=== PATIENT | female | born 1975 | race Caucasian/White ===

== ENCOUNTER 2018-08-07 17:54 | Emergency (ER) | payer OTHER, SELFPAY ==
[2018-08-07 18:12] VITALS: BP 122/74; PULSE 66; RESP 18; TEMP 36.2; O2SAT 100; BMI 26.4
[2018-08-07] MEDS: ONDANSETRON 4 MG/2 ML INJ IV (18:36)
[2018-08-07] MEDS: SODIUM CHLORIDE 0.9% 1,000 ML 1000 ML IV ×2 (18:36→20:45)
[2018-08-07 18:56] LABS: Add Manual Diff / Slide Review NO; Basophils Percent Auto 0.5 % (0-2); Eosinophils Percent Auto 2.8 % (2-4); Hematocrit 39.2 % (36-46); Hemoglobin 13.7 g/dL (12.0-16.0); Lymphocytes Percent Auto 22.6 % (25-40); Mean Corpuscular HGB Conc 34.9 % (30-36); Mean Corpuscular Volume 97.3 fL (80-100); Monocytes Percent Auto 9.4 % (3-14); Neutrophils Absolute Auto 3900 /uL (3000-5900); Neutrophils Percent Auto 64.7 % (50-75); Platelet Count 180 X10^3/uL (150-400); Red Blood Cell Count 4.03 X10^6/uL (4.0-5.2); Red Cell Distribution Width 11.9 % (11.6-14.8); White Blood Cell Count 6.1 X10^3/uL (4.5-11.0)
[2018-08-07] MEDS: MECLIZINE HCL 12.5 MG TABLET 25 MG PO (19:03)
[2018-08-07 19:13] LABS: BUN Creatinine Ratio 22.2 (6-22); Blood Urea Nitrogen 20 mg/dL (7-17); Calcium 9.4 mg/dL (8.4-10.2); Carbon Dioxide 28 mmol/L (22-32); Chloride 104 mmol/L (98-107); Estimated Glomerular Filt Rate > 60.0 mL/min (>60); Glucose 87 mg/dL (70-100); HEMOLYSIS < 15 (0-50); Potassium 3.7 mmol/L (3.4-5.1); Sodium 143 mmol/L (137-145)
[2018-08-07 19:15] VITALS: BP 120/69; PULSE 58; RESP 19; O2SAT 100
[2018-08-07 20:12] VITALS: BP 115/62; PULSE 67; RESP 16; O2SAT 100
[2018-08-07 20:52] VITALS: BP 120/61; PULSE 64; RESP 14; O2SAT 100
[2018-08-07 21:35] VITALS: BP 112/64; PULSE 63; RESP 17; O2SAT 98
[2018-08-07 21:50] VITALS: BP 112/64; RESP 10
[2018-08-07] MEDS: ONDANSETRON 4 MG ODT PREPACK 1 BOTTLE MISC (22:01)
--- NOTE | 2018-08-08 05:24 | ED_ITS ---
HPI - Dizziness General Chief Complaint: Dizziness Stated Complaint: VERTIGO Time Seen by Provider: 08/07/18 18:10 Source: patient and family Mode of arrival: ambulatory Limitations: no limitations History of Present Illness HPI Narrative: 42-year-old female with history of hypothyroid presents to the emergency department with her mother and a chief complaint of severe gradually worsening dizziness over the course of the day. She has had a runny nose and trouble with eustachian tube dysfunction the past and has had upper respiratory type complaints for the past few days. She developed profound dizziness any time moving her head associated with nausea but no vomiting. She denies any recent head injuries and has no fever or chills. She denies chest pain or shortness of breath. She becomes significantly dizzy anytime she moves her head and states the dizziness lasts about 1 min. MD complaint: dizziness Onset (ago): hour(s) Timing: gradual onset Description: sense of movement and room spinning History of similar episodes: No History of trauma: No Severity: severe Relieving factors: remaining still Exacerbating factors: movement and position Associated symptoms: nausea Related Data Home Medications Medication Instructions Recorded Confirmed levothyroxine 250 #0 10/14/17 Previous Rx's Medication Instructions Recorded meclizine 25 mg PO BID-TID PRN #14 tab 08/07/18 ondansetron [Zofran ODT] 4 mg PO Q6H PRN #14 tab 08/07/18 Review of Systems Review of Systems All systems reviewed & are unremarkable except as noted in HPI and below Constitutional Denies chills, Denies fever(s), Denies lethargy and Denies weakness Eyes Denies change in vision, Denies eye discharge, Denies irritation and Denies loss of vision ENT Ears, Nose, Mouth, and Throat: Denies change in voice, Reports vertigo, Reports dizziness, Denies neck pain and Denies sore throat Cardiovascular Denies chest pain, Denies irregular heart rhythm, Denies lightheadedness, Denies palpitations, Denies dyspnea, Denies dyspnea on exertion and Denies orthopnea Respiratory Denies cough, Denies dyspnea, Denies dyspnea on exertion and Denies wheezing Gastrointestinal Gastrointestinal: Denies abdominal pain, Denies change in bowel habits, Denies diarrhea, Denies nausea and Denies vomiting Genitourinary Denies hematuria, Denies flank pain, Denies urinary incontinence and Denies urinary urgency Musculoskeletal Denies neck pain Integumentary/Breasts Denies pruritus, Denies erythema, Denies rash and Denies wounds Neurologic Denies confusion, Reports vertigo, Reports dizziness, Denies loss of vision and Denies weakness Psychiatric Denies anxiety, Denies confusion, Denies depression, Denies homicidal ideation and Denies suicidal ideation Endocrine Denies palpitations Hematologic/Lymphatic Denies easy bruising Allergic/Immunologic Denies wheezing [facility] Social History Smoking Status: Former smoker Exam Narrative Exam Narrative: GENERAL: This is a well-nourished, well-developed patient, in mild distress. Obviously uncomfortable and anxious HEAD: Atraumatic. Normocephalic. No temporal or scalp tenderness. EYES: Pupils equal round and reactive. Extraocular motions intact. No scleral icterus. No injection or drainage. ENT: Nose without bleeding, purulent drainage or septal hematoma. Throat without erythema, tonsillar hypertrophy or exudate. Uvula midline. Airway patent. NECK: Trachea midline. No JVD or lymphadenopathy. Supple, nontender, no meningeal signs. CARDIOVASCULAR: Regular rate and rhythm without murmurs, gallops, or rubs. RESPIRATORY: Clear to auscultation. Breath sounds equal bilaterally. No wheezes , rales, or rhonchi. GASTROINTESTINAL: Abdomen soft, non-tender, nondistended. No hepato-splenomegaly , or palpable masses. No guarding. EXTREMITIES: No clubbing, cyanosis, or edema. No joint tenderness, effusion, or edema noted. BACK: Nontender without deformity or crepitance. No flank tenderness. NEURO: AOx3. SKIN: No rash or erythema. Initial Vital Signs Initial Vital Signs: Vital Signs Temperature 97.2 F L 08/07/18 18:12 Pulse Rate 66 08/07/18 18:12 Respiratory Rate 18 08/07/18 18:12 Blood Pressure 122/74 08/07/18 18:12 Pulse Oximetry 100 08/07/18 18:12 Course Orders Ordered: Discontinued Medications Sodium Chloride (Normal Saline 0.9%) 1,000 mls @ 1,000 mls/hr IV BOLUS ONE Stop: 08/07/18 19:17 Last Infusion: 08/07/18 19:38 Dose: 0 mls/hr Admin: 08/07/18 18:36 Dose: 1,000 mls/hr Sodium Chloride (Normal Saline 0.9%) 1,000 mls @ 1,000 mls/hr IV BOLUS ONE Stop: 08/07/18 21:28 Last Infusion: 08/07/18 22:07 Dose: 1,000 mls/hr Admin: 08/07/18 20:45 Dose: 1,000 mls/hr Meclizine HCl (Antivert) 25 mg PO NOW ONE Stop: 08/07/18 18:48 Last Admin: 08/07/18 19:03 Dose: 25 mg Ondansetron HCl (Zofran) 4 mg IV NOW ONE Stop: 08/07/18 18:18 Last Admin: 08/07/18 18:36 Dose: 4 mg Ondansetron HCl (Zofran Odt Prepack) 1 bottle MISC SEEINSTR ONE Stop: 08/07/18 21:51 Last Admin: 08/07/18 22:01 Dose: 1 bottle Reevaluation(s) Reevaluation #1: [place]-Hallpike performed and notes fast twitch nystagmus towards the right ear Allyson maneuver results in complete resolution of vertigo, however patient still feels a bit groggy and ?floaty? after above stated medications Vital Signs - 8 hr 08/07/18 21:35 08/07/18 21:50 Pulse Rate 63 Respiratory Rate 17 10 L Blood Pressure [Left Arm] 112/64 112/64 Pulse Oximetry 98 MDM - Dizziness Differential Diagnosis Likely adverse reaction to drug, benign paroxysmal positional vertigo, orthostatic hypotension, vertebral basilar insufficiency, cerebrovascular accident, acute vestibular neuronitis and transient cerebral ischemia Medical Records Attestation: I reviewed the patient's medical records. Lab Data Attestation: I reviewed the patient's lab results. Result diagrams: 08/07/18 18:30 08/07/18 18:34 Lab Results 08/07/18 08/07/18 Range/Units 18:30 18:34 WBC 6.1 (4.5-11.0) X10^3/uL RBC 4.03 (4.0-5.2) X10^6/uL Hgb 13.7 (12.0-16.0) g/dL Hct 39.2 (36-46) % MCV 97.3 (80-100) fL MCH 34.0 (26-34) PG MCHC 34.9 (30-36) % RDW 11.9 (11.6-14.8) % Plt Count 180 (150-400) X10^3/uL Neut % (Auto) 64.7 (50-75) % Lymph % (Auto) 22.6 L (25-40) % Ritchie % (Auto) 9.4 (3-14) % Eos % (Auto) 2.8 (2-4) % Baso % (Auto) 0.5 (0-2) % Neut # (Auto) 3900 (2281-5115) /uL Sodium 143 (137-145) mmol/L Potassium 3.7 (3.4-5.1) mmol/L Chloride 104 (98-107) mmol/L Carbon Dioxide 28 (22-32) mmol/L BUN 20 H (7-17) mg/dL Creatinine 0.90 (0.52-1.04) mg/dL Estimated GFR > 60.0 (>60) mL/min BUN/Creatinine Ratio 22.2 H (6-22) Glucose 87 (70-100) mg/dL Calcium 9.4 (8.4-10.2) mg/dL MDM Narrative Medical decision making narrative: Differential diagnosis includes stroke, cardiac, dehydration, labyrinthitis, BPPV. BPPV thought most likely given reproducible, fatigable, peripheral vertigo which responds to meclizine and Allyson maneuver Discharge Plan Departure Patient Disposition: Home Clinical Impression: Benign paroxysmal positional vertigo Discharge Date/Time: 08/07/18 22:10 Interventions: ED Discharge Assessment Last Done: 08/07/18 22:08 Instructions: DI for Benign Paroxysmal Positional Vertigo Activity Restrictions/Additional Instructions: *You have been diagnosed with [ peripheral vertigo ] *What to do: *Take medications as directed *Follow up with your primary care provider in 2-3 days, call for an appointment. Let them know you were seen in the Emergency Department and that we ask that you be seen in follow up *Return to ER if you should have any new, worsening or concerning symptoms Prescriptions: New ondansetron [Zofran ODT] 4 mg tablet,disintegrating 4 mg PO Q6H PRN (Reason: nausea and vomiting) Qty: 14 RF: 0 meclizine 25 mg tablet 25 mg PO BID-TID PRN (Reason: dizziness) Qty: 14 RF: 0 No Action levothyroxine 200 MCG recon soln 250 Qty: 0 RF: 0 Referrals: Richard Lucio DO [Non-Staff] -
== END 2018-08-07 22:10 | disposition home or self-care (01) ==
PROVIDERS: Emergency Provider Emergency Medicine
DX: H81.10 Benign paroxysmal vertigo, unspecified ear (principal)
CPT/HCPCS: 36591; 80048; 85025; 93005; 96361; 96374; 99283; 99284; J2405

== ENCOUNTER 2019-06-26 13:00 | Outpatient (RCR) | payer OTHER, SELFPAY ==
--- NOTE | 2019-05-25 17:36 | PT.OIE ---
Current Diagnoses Stress incontinence (female) (male) (05/20/19) Pelvic muscle wasting (05/20/19) Provider Visit Care Team Role Provider Type Kevin Chan CNP Attending Provider Non-Staff Primary Care Provider Specialty: Medical Address: [address] [place] [address], [facility] Email: Physical Therapy Initial Evaluation PT-OP-A Visit Information Start: 05/25/19 16:58 Freq: Status: Active Protocol: Document 05/20/19 09:00 [facility] (Rec: 05/25/19 17:35 [facility] [email or web address]) Out-Patient Physical Therapy Visit Information Visit Information Visit Type Initial Evaluation Visit Note 43 year old femalereferred to PT for urinary incontinence wtih exercise. Stephanie has c/o urinary leakage with running and sprinting as well as with lifting weights. She reports she is okay in a squat position but if she comes out of a posterior pelvic tilt position she will experience leakage. Visit Start Time 09:00 Visit Stop Time 09:45 Total Visit Minutes 45 Visit Number 1 Evaluation Information Evaluation Date 05/20/19 PT-OP-B Current Condition Start: 05/25/19 16:58 Freq: Status: Active Protocol: Document 05/20/19 09:00 [facility] (Rec: 05/25/19 17:35 [facility] [email or web address]) Current Condition History of Current Condition Onset Date sx began post Current Complaints c/o urinary leakage with running and with lifting weights History of Current Condition Stephanie is a 43 year old female s/p 4 vaginal deliveries with minimal tearing. She reports her symptoms began following her pregnancies. 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 If she is in a posterior pelvic tilt she has more control. Running especially sprinting causes leakage and she will wet through her outerwear. She has a history of right biceps tendon repair 3 years ago and she notes during this time she injured her low back. Her urinary leakage symptoms worsened following this period. Treatment Goals Patient/Caregiver Goals Goals include to continue running and sprinting without urinary leakage and to feel strong and supported with lifting weights without leakage. PT-OP-F Manual Assessment Start: 05/25/19 16:58 Freq: Status: Active Protocol: Document 05/20/19 09:00 [facility] (Rec: 05/25/19 17:35 [facility] [email or web address]) Manual Assessments Soft Tissue Assessment Soft Tissue Mobility Assessment tightness of the iliopsoas bilaterally right greater than left with + panchito test Joint Mobility Assessment Joint Mobility Assessment SI instability with + ASLR on the R for left sided instability + flare test on the right with decreased ability to perform tight hip ER without the pelvis moving PT-OP-I Pelvic Floor Start: 05/25/19 16:58 Freq: Status: Active Protocol: Document 05/20/19 09:00 [facility] (Rec: 05/25/19 17:35 [facility] [email or web address]) Pelvic Floor Assessment Urine Pelvic Floor Surgery No Urinary Symptoms Urge Sensation Other Urinary Symptoms with impact exercise Stephanie reports moderate urgency and occasional urgency after going to the bathroom. Leakage Size Medium Leakage Cause Exercise Lifting Leaks Per Day depends on activity Urine Pad Type Maxi Pad Pelvic Clock Pelvic Clock 12-3 Atrophy Pelvic Clock 3-6 Atrophy Pelvic Clock 6-9 Atrophy Pelvic Clock 9-12 Atrophy SEMG (uV) Baseline 6.0 10 Second Contraction 13.4 Recruitment Pattern Fair Relaxation Fair Holding Fair Stability of Hold Fair SEMG Stability of Rest Fair Contraction Ability Voluntary Contraction Weak Voluntary Relaxation Weak Manual Muscle Testing Left 2 Manual Muscle Testing Right 3 Manual Muscle Testing Anterior 2 Manual Muscle Testing Posterior 3 Muscle Endurance (Seconds) 6 PT-OP-J Posture/Palpation/Skin Start: 05/25/19 16:58 Freq: Status: Active Protocol: Document 05/20/19 09:00 [facility] (Rec: 05/25/19 17:35 [facility] [email or web address]) Palpation Assessment Location One Palpation Location right quadratus lumborum Palpation Findings Soft Tissue Tightness Muscle Guarding Palpation Details visual tightness of the right quadratus lumborum in standing PT-OP-Q Treatments Start: 05/25/19 16:58 Freq: Status: Active Protocol: Document 05/20/19 09:00 [facility] (Rec: 05/25/19 17:35 [facility] [email or web address]) Therapeutic Exercises Supine Exercises 3 Supine Exercise Name supine bent knee fallouts Reps/Minutes x 10 reps 2 Supine Exercise Name pelvic floor long holds holding 10 seconds resting 10 seconds Reps/Minutes 2-3 xms per day Comments lateral wall recruitment visualization 1 Supine Exercise Name iliopsoas stretch in supine Side bilateral Comments emphasis on the right side Prone Exercises 1 Prone Exercise Name prone hip ER AROM Side right Reps/Minutes x 10 reps PT-OP-T Assessment and Plan Start: 05/25/19 16:58 Freq: Status: Active Protocol: Document 05/20/19 09:00 [facility] (Rec: 05/25/19 17:35 [facility] [email or web address]) Physical Therapy Assessment Rehab Potential Rehabilitation Potential Excellent Evaluation Complexity Number of Personal Factors/Comorbidities 0 Number of Body Systems Impaired 1-2 Clinical Presentation at Evaluation Stable Impairments Impairments Activity Tolerance Functional Activities ROM Soft Tissue Mobility Strength Other Impairments urinary stress incontinence with weakness of the pelvic floor Goals Five Impairment Decreased endurance of the pelvic floor Short Term Goal (STG) Stephanie is able to sustain a pelvic floor contraction in supine x 10 seconds for 10 reps STG Duration 4 weeks [employer] Goal (LTG) Stephanie is able to sustain a pelvic floor muscle contraction in standing x 10 seconds for 10 reps LTG Duration 8 weeks Four Impairment R SI dysfunction with decreased ability to rotate the right hip Skilled Nursing Goal (LTG) Stephanie is able to rotate her right hip without the pelvis moving, ASLR is negative B and she is no longer showing left SI unlocking demonstrating improved SI stabilization LTG Duration 8 weeks plus Three Impairment tightness and muscle guarding of the R>L iliopsoas, R quadratus lumborum Short Term Goal (STG) Stephanie is educated in a streching program for the iliopsoas and quadratus lumborum STG Duration 3-4 weeks Two Impairment Urinary leakage with weight lifting and running Skilled Nursing Goal (LTG) With strengthening Stephanie is able to return to her weight lifting exercises and running without experiencing leakage LTG Duration 8 weeks plus One Impairment Weakness of the levator ani with decreased sensation of PFM activation [employer] Goal (LTG) Stephanie is able to show a increase in pelvic floor strength by at least one muscle grade and has improved sensation of pelvic floor activation Current MMT is anterior 2/5 posterior 3/5 left side 2/5, right side 3/5 LTG Duration 8 weeks Assessment Summary Assessment Stephanie presents to physical therapy today with symptoms of urinary stress incontinence. She began noticing incontinence after her pregnancies. She has had 4 vaginal deliveries with small amounts of tearning only. 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 She describes leakage with running and especially with sprinting . With examination today she is tight in her R>L iliopsoas and has a + testing for ASLR test on the right with left side instability. She is guarded in her muscle tissue in the quadratus lumborum region and has difficulty with isolating hip ER on the right without her full pelvis moving. With internal pelvic floor examination the left side is weaker than the right. Her MMT is as follows: Anterior 2/5, left side wall 2 /5, right side wall 3/5, posterior wall 3/5. She has decreased endurance and it is difficult for her to feel her lateral levator ani musculature. Treatment today included neuromuscular awareness of the levator ani with EMG biofeedback. Stephanie tolerated this well. She demonstrates decreased endurance of the levator ani. Stephanie may benefit form NMES for the pelvic floor as it is difficult for her to feel her lateral mendoza. We will start this next visit for her. Physical Therapy Plan Frequency and Duration Frequency of Treatment 1x/Week Duration of Treatment 8 weeks Plan of Care Start Date 05/20/19 Plan of Care End Date 07/22/19 Therapeutic Interventions Therapeutic Interventions Home Exercise Program Joint Mobilizations Manual Therapy Neuromuscular Re-education Patient/Caregiver Education Self-Care/Home Management Therapeutic Exercises Modalities Biofeedback Electric Stimulation Other Therapeutic Interventions Home rental of NMES Next Visit Focus/Plan Next Note Type Treatment Note Next Visit Plan Begin NMES next visit for improved sensation and awareness of the pelvic floor, add in quadratus lumborum stretches and review HEP
--- NOTE | 2019-05-25 17:38 | PT.OPPOC ---
Current Diagnoses Stress incontinence (female) (male) (05/20/19) Pelvic muscle wasting (05/20/19) Provider Visit Care Team Role Provider Type Kevin Chan CNP Attending Provider Non-Staff Primary Care Provider Specialty: Medical Address: [address] [place] [address], [facility] Email: Plan Of Care PT-OP-T Assessment and Plan Start: 05/25/19 16:58 Freq: Status: Active Protocol: Document 05/20/19 09:00 [facility] (Rec: 05/25/19 17:35 [facility] [email or web address]) Physical Therapy Assessment Rehab Potential Rehabilitation Potential Excellent Evaluation Complexity Number of Personal Factors/Comorbidities 0 Number of Body Systems Impaired 1-2 Clinical Presentation at Evaluation Stable Impairments Impairments Activity Tolerance Functional Activities ROM Soft Tissue Mobility Strength Other Impairments urinary stress incontinence with weakness of the pelvic floor Goals Five Impairment Decreased endurance of the pelvic floor Short Term Goal (STG) Stephanie is able to sustain a pelvic floor contraction in supine x 10 seconds for 10 reps STG Duration 4 weeks Nursing Home Goal (LTG) Stephanie is able to sustain a pelvic floor muscle contraction in standing x 10 seconds for 10 reps LTG Duration 8 weeks Four Impairment R SI dysfunction with decreased ability to rotate the right hip Facility Environmental Technician Goal (LTG) Stephanie is able to rotate her right hip without the pelvis moving, ASLR is negative B and she is no longer showing left SI unlocking demonstrating improved SI stabilization LTG Duration 8 weeks plus Three Impairment tightness and muscle guarding of the R>L iliopsoas, R quadratus lumborum Short Term Goal (STG) Stephanie is educated in a streching program for the iliopsoas and quadratus lumborum STG Duration 3-4 weeks Two Impairment Urinary leakage with weight lifting and running Nursing Home Goal (LTG) With strengthening Stephanie is able to return to her weight lifting exercises and running without experiencing leakage LTG Duration 8 weeks plus One Impairment Weakness of the levator ani with decreased sensation of PFM activation Nursing Home Goal (LTG) Stephanie is able to show a increase in pelvic floor strength by at least one muscle grade and has improved sensation of pelvic floor activation Current MMT is anterior 2/5 posterior 3/5 left side 2/5, right side 3/5 LTG Duration 8 weeks Assessment Summary Assessment Stephanie presents to physical therapy today with symptoms of urinary stress incontinence. She began noticing incontinence after her pregnancies. She has had 4 vaginal deliveries with small amounts of tearning only. 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 She describes leakage with running and especially with sprinting. With examination today she is tight in her R>L iliopsoas and has a + testing for ASLR test on the right with left side instability. She is guarded in her muscle tissue in the quadratus lumborum region and has difficulty with isolating hip ER on the right without her full pelvis moving. With internal pelvic floor examination the left side is weaker than the right. Her MMT is as follows: Anterior 2/5, left side wall 2 /5, right side wall 3/5, posterior wall 3/5. She has decreased endurance and it is difficult for her to feel her lateral levator ani musculature. Treatment today included neuromuscular awareness of the levator ani with EMG biofeedback. Stephanie tolerated this well. She demonstrates decreased endurance of the levator ani. Stephanie may benefit form NMES for the pelvic floor as it is difficult for her to feel her lateral mendoza. We will start this next visit for her. Physical Therapy Plan Frequency and Duration Frequency of Treatment 1x/Week Duration of Treatment 8 weeks Plan of Care Start Date 05/20/19 Plan of Care End Date 07/22/19 Therapeutic Interventions Therapeutic Interventions Home Exercise Program Joint Mobilizations Manual Therapy Neuromuscular Re-education Patient/Caregiver Education Self-Care/Home Management Therapeutic Exercises Modalities Biofeedback Electric Stimulation Other Therapeutic Interventions Home rental of NMES Next Visit Focus/Plan Next Note Type Treatment Note Next Visit Plan Begin NMES next visit for improved sensation and awareness of the pelvic floor, add in quadratus lumborum stretches and review HEP Plan of Care Dates Plan of Care Start Date 05/20/19 Plan of Care End Date 07/22/19 Please Sign and Return: I have reviewed this Plan of Care and certify that the skilled therapy services above are required to meet the patient?s needs. Physician Signature Date Printed Name and Credentials Clinical Instructor Signature Printed Name and Credentials
--- NOTE | 2019-05-29 15:42 | PT.OTN ---
Current Diagnoses Stress incontinence (female) (male) (05/28/19) Pelvic muscle wasting (05/28/19) Physical Therapy Treatment Note PT-OP-A Visit Information Start: 05/25/19 16:58 Freq: Status: Active Protocol: Document 05/28/19 10:00 [facility] (Rec: 05/29/19 15:42 [facility] [email or web address]) Out-Patient Physical Therapy Visit Information Visit Information Visit Type Treatment Note Visit Start Time 10:00 Visit Stop Time 10:45 Total Visit Minutes 45 Visit Number 2 Evaluation Information Evaluation Date 05/20/19 PT-OP-B Current Condition Start: 05/25/19 16:58 Freq: Status: Active Protocol: Document 05/20/19 09:00 [facility] (Rec: 05/25/19 17:35 [facility] [email or web address]) Current Condition History of Current Condition Onset Date sx began post Current Complaints c/o urinary leakage with running and with lifting weights History of Current Condition Stephanie is a 43 year old female s/p 4 vaginal deliveries with minimal tearing. She reports her symptoms began following her pregnancies. 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 If she is in a posterior pelvic tilt she has more control. Running especially sprinting causes leakage and she will wet through her outerwear. She has a history of right biceps tendon repair 3 years ago and she notes during this time she injured her low back. Her urinary leakage symptoms worsened following this period. Treatment Goals Patient/Caregiver Goals Goals include to continue running and sprinting without urinary leakage and to feel strong and supported with lifting weights without leakage. PT-OP-C Subjective Start: 05/25/19 16:58 Freq: Status: Active Protocol: Document 05/28/19 10:11 [facility] (Rec: 05/28/19 10:16 [facility] [email or web address]) OP-PT Subjective Patient Comments Patient Comments Stephanie reports she can feel her right QL muscles and trying to tighten her pelvic floor. She feels decreased endurance and that her pelvic floor gets slow with her contractions. PT-OP-F Manual Assessment Start: 05/25/19 16:58 Freq: Status: Active Protocol: Document 05/20/19 09:00 [facility] (Rec: 05/25/19 17:35 [facility] [email or web address]) Manual Assessments Soft Tissue Assessment Soft Tissue Mobility Assessment tightness of the iliopsoas bilaterally right greater than left with + panchito test Joint Mobility Assessment Joint Mobility Assessment SI instability with + ASLR on the R for left sided instability + flare test on the right with decreased ability to perform tight hip ER without the pelvis moving PT-OP-I Pelvic Floor Start: 05/25/19 16:58 Freq: Status: Active Protocol: Document 05/20/19 09:00 [facility] (Rec: 05/25/19 17:35 [facility] [email or web address]) Pelvic Floor Assessment Urine Pelvic Floor Surgery No Urinary Symptoms Urge Sensation Other Urinary Symptoms with impact exercise Stephanie reports moderate urgence and occasional urgency after going to the bathroom. Leakage Size Medium Leakage Cause Exercise Lifting Leaks Per Day depends on activity Urine Pad Type Maxi Pad Pelvic Clock Pelvic Clock 12-3 Atrophy Pelvic Clock 3-6 Atrophy Pelvic Clock 6-9 Atrophy Pelvic Clock 9-12 Atrophy SEMG (uV) Baseline 6.0 10 Second Contraction 13.4 Recruitment Pattern Fair Relaxation Fair Holding Fair Stability of Hold Fair SEMG Stability of Rest Fair Contraction Ability Voluntary Contraction Weak Voluntary Relaxation Weak Manual Muscle Testing Left 2 Manual Muscle Testing Right 3 Manual Muscle Testing Anterior 2 Manual Muscle Testing Posterior 3 Muscle Endurance (Seconds) 6 PT-OP-J Posture/Palpation/Skin Start: 05/25/19 16:58 Freq: Status: Active Protocol: Document 05/20/19 09:00 [facility] (Rec: 05/25/19 17:35 [facility] [email or web address]) Palpation Assessment Location One Palpation Location right quadratus lumborum Palpation Findings Soft Tissue Tightness Muscle Guarding Palpation Details visual tightness of the right quadratus lumborum in standing PT-OP-Q Treatments Start: 05/25/19 16:58 Freq: Status: Active Protocol: Document 05/28/19 10:00 [facility] (Rec: 05/29/19 15:42 [facility] [email or web address]) Therapeutic Exercises Supine Exercises 4 Supine Exercise Name ball squeeze with anterior pelvic floor activation Reps/Minutes 10 reps x 5 seconds 3 Supine Exercise Name supine bent knee fallouts Reps/Minutes x 10 reps 2 Supine Exercise Name pelvic floor long holds holding 10 seconds resting 10 seconds Reps/Minutes 2-3 xms per day Comments lateral wall recruitment visualization Prone Exercises 1 Prone Exercise Name prone hip ER AROM Side right Reps/Minutes x 10 reps Other Exercises 1 Other Exercise Name juan antonio pose with sidebend stretch Neuro Re-Education Treatment Other Activities 2 Details NMES Reps/Duration 10 min Comments left side of the levator ani was difficult to feel but by the end of treatment Stephanie was able to begin feeling the NMES on her left 1 Details neuro re-education with EMG biofeedbacl Comments resting tone education and facilitation of the pelvic floor without QL guarding PT-OP-T Assessment and Plan Start: 05/25/19 16:58 Freq: Status: Active Protocol: Document 05/28/19 10:00 [facility] (Rec: 05/29/19 15:42 [facility] [email or web address]) Physical Therapy Assessment Assessment Summary Assessment right iliopsoas tightness at the upper lumbar attachments. Gave Stephanie juan antonio pose stretches to begin opening up this region. Began NMES and by the end of the session Stephanie could feel the left side. She is more guarded on the right and weaker on the left. She may benefit from more manual therapy techniques next visit to open up her QL and upper lumbar spine. Resting tone wasd 4.8 initially today. Average contraction is 16.4 uv and max is 51.2 uv Physical Therapy Plan Frequency and Duration Frequency of Treatment 1x/Week Duration of Treatment 8 weeks Plan of Care Start Date 05/20/19 Plan of Care End Date 07/22/19 Next Visit Focus/Plan Next Note Type Treatment Note Next Visit Plan manual therapy to relax the iliopsoas and QL, NMES and pelvic floor progression, check posterior hip capsule tightness right
--- NOTE | 2019-06-16 07:58 | PT.OTN ---
Current Diagnoses Stress incontinence (female) (male) (06/11/19) Pelvic muscle wasting (06/11/19) Physical Therapy Treatment Note PT-OP-A Visit Information Start: 05/25/19 16:58 Freq: Status: Active Protocol: Document 06/11/19 13:30 [facility] (Rec: 06/16/19 07:58 [facility] [email or web address]) Out-Patient Physical Therapy Visit Information Visit Information Visit Type Treatment Note Visit Start Time 13:30 Visit Stop Time 14:15 Total Visit Minutes 45 Visit Number 3 PT-OP-B Current Condition Start: 05/25/19 16:58 Freq: Status: Active Protocol: Document 05/20/19 09:00 [facility] (Rec: 05/25/19 17:35 [facility] [email or web address]) Current Condition History of Current Condition Onset Date sx began post Current Complaints c/o urinary leakage with running and with lifting weights History of Current Condition Stephanie is a 43 year old female s/p 4 vaginal deliveries with minimal tearing. She reports her symptoms began following her pregnancies. 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 If she is in a posterior pelvic tilt she has more control. Running especially sprinting causes leakage and she will wet through her outerwear. She has a history of right biceps tendon repair 3 years ago and she notes during this time she injured her low back. Her urinary leakage symptoms worsened following this period. Treatment Goals Patient/Caregiver Goals Goals include to continue running and sprinting without urinary leakage and to feel strong and supported with lifting weights without leakage. PT-OP-C Subjective Start: 05/25/19 16:58 Freq: Status: Active Protocol: Document 06/11/19 13:30 [facility] (Rec: 06/16/19 07:58 [facility] [email or web address]) OP-PT Subjective Patient Comments Patient Comments Stephanie reports she received her home NMES unit and has used it a few times now. She is still feeling really tight on the right side side and today felt it from her right anterior up up to her low back PT-OP-F Manual Assessment Start: 05/25/19 16:58 Freq: Status: Active Protocol: Document 05/20/19 09:00 [facility] (Rec: 05/25/19 17:35 [facility] [email or web address]) Manual Assessments Soft Tissue Assessment Soft Tissue Mobility Assessment tightness of the iliopsoas bilaterally right greater than left with + panchito test Joint Mobility Assessment Joint Mobility Assessment SI instability with + ASLR on the R for left sided instability + flare test on the right with decreased ability to perform tight hip ER without the pelvis moving PT-OP-I Pelvic Floor Start: 05/25/19 16:58 Freq: Status: Active Protocol: Document 05/20/19 09:00 [facility] (Rec: 05/25/19 17:35 [facility] [email or web address]) Pelvic Floor Assessment Urine Pelvic Floor Surgery No Urinary Symptoms Urge Sensation Other Urinary Symptoms with impact exercise Stephanie reports moderate urgence and occasional urgency after going to the bathroom. Leakage Size Medium Leakage Cause Exercise Lifting Leaks Per Day depends on activity Urine Pad Type Maxi Pad Pelvic Clock Pelvic Clock 12-3 Atrophy Pelvic Clock 3-6 Atrophy Pelvic Clock 6-9 Atrophy Pelvic Clock 9-12 Atrophy SEMG (uV) Baseline 6.0 10 Second Contraction 13.4 Recruitment Pattern Fair Relaxation Fair Holding Fair Stability of Hold Fair SEMG Stability of Rest Fair Contraction Ability Voluntary Contraction Weak Voluntary Relaxation Weak Manual Muscle Testing Left 2 Manual Muscle Testing Right 3 Manual Muscle Testing Anterior 2 Manual Muscle Testing Posterior 3 Muscle Endurance (Seconds) 6 PT-OP-J Posture/Palpation/Skin Start: 05/25/19 16:58 Freq: Status: Active Protocol: Document 05/20/19 09:00 [facility] (Rec: 05/25/19 17:35 [facility] [email or web address]) Palpation Assessment Location One Palpation Location right quadratus lumborum Palpation Findings Soft Tissue Tightness Muscle Guarding Palpation Details visual tightness of the right quadratus lumborum in standing PT-OP-Q Treatments Start: 05/25/19 16:58 Freq: Status: Active Protocol: Document 06/11/19 13:30 [facility] (Rec: 06/16/19 07:58 [facility] [email or web address]) Therapeutic Exercises Supine Exercises 5 Supine Exercise Name TA facilitation without obliques 4 Supine Exercise Name HOLD DUE TO ADDUCTOR TIGHTNESS 3 Supine Exercise Name supine bent knee fallouts Reps/Minutes x 10 reps 2 Supine Exercise Name pelvic floor long holds holding 10 seconds resting 10 seconds Reps/Minutes 2-3 xms per day Comments lateral wall recruitment visualization 1 Supine Exercise Name iliopsoas stretch in supine Side bilateral Comments emphasis on the right side Manual Therapy Treatment Soft Tissue Mobilization 1 Body Location right adductors Mobilization Type Myofascial Release Joint Mobilizations 2 Joint Hip distraction MWM hip ER/ER, inferior glide Grade III Body Position Hooklying 1 Joint right posterior capsule hip stretch Grade III Body Position Hooklying Self-Care/Home Management Treatment Education Patient Education Home Exercise Program Joint Protection Other Education Jayashree VU SI belt trial with right multifidi compression and left TA compression PT-OP-T Assessment and Plan Start: 05/25/19 16:58 Freq: Status: Active Protocol: Document 06/11/19 13:30 [facility] (Rec: 06/16/19 07:58 [facility] [email or web address]) Physical Therapy Assessment Assessment Summary Assessment Stephanie responded well to the Jayashree Vu SI belt with right multifidi compression and left TA compression. She is very guarded in the right adductors so these were released today too. We reviewed TA facilitation without overcompression of the obliques Physical Therapy Plan Frequency and Duration Frequency of Treatment 1x/Week Duration of Treatment 8 weeks Plan of Care Start Date 05/20/19 Plan of Care End Date 07/22/19 Next Visit Focus/Plan Next Note Type Treatment Note Next Visit Plan recheck SI belt and posterior hip capsule glides, add eccentric strengthening of the pelvic floor to HEP
--- NOTE | 2019-06-30 06:49 | PT.OTN ---
Current Diagnoses Stress incontinence (female) (male) (06/26/19) Pelvic muscle wasting (06/26/19) Physical Therapy Treatment Note PT-OP-A Visit Information Start: 05/25/19 16:58 Freq: Status: Active Protocol: Document 06/26/19 13:00 [facility] (Rec: 06/30/19 06:48 [facility] [email or web address]) Out-Patient Physical Therapy Visit Information Visit Information Visit Type Treatment Note Visit Start Time 13:00 Visit Stop Time 13:45 Total Visit Minutes 45 Visit Number 4 PT-OP-B Current Condition Start: 05/25/19 16:58 Freq: Status: Active Protocol: Document 05/20/19 09:00 [facility] (Rec: 05/25/19 17:35 [facility] [email or web address]) Current Condition History of Current Condition Onset Date sx began post Current Complaints c/o urinary leakage with running and with lifting weights History of Current Condition Stephanie is a 43 year old female s/p 4 vaginal deliveries with minimal tearing. She reports her symptoms began following her pregnancies. 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 If she is in a posterior pelvic tilt she has more control. Running especially sprinting causes leakage and she will wet through her outerwear. She has a history of right biceps tendon repair 3 years ago and she notes during this time she injured her low back. Her urinary leakage symptoms worsened following this period. Treatment Goals Patient/Caregiver Goals Goals include to continue running and sprinting without urinary leakage and to feel strong and supported with lifting weights without leakage. PT-OP-C Subjective Start: 05/25/19 16:58 Freq: Status: Active Protocol: Document 06/26/19 13:00 [facility] (Rec: 06/30/19 06:48 [facility] [email or web address]) OP-PT Subjective Patient Comments Patient Comments Stephanie reports her right hip released after last visit and feels much more free now PT-OP-F Manual Assessment Start: 05/25/19 16:58 Freq: Status: Active Protocol: Document 05/20/19 09:00 [facility] (Rec: 05/25/19 17:35 [facility] [email or web address]) Manual Assessments Soft Tissue Assessment Soft Tissue Mobility Assessment tightness of the iliopsoas bilaterally right greater than left with + panchito test Joint Mobility Assessment Joint Mobility Assessment SI instability with + ASLR on the R for left sided instability + flare test on the right with decreased ability to perform tight hip ER without the pelvis moving PT-OP-I Pelvic Floor Start: 05/25/19 16:58 Freq: Status: Active Protocol: Document 05/20/19 09:00 [facility] (Rec: 05/25/19 17:35 [facility] [email or web address]) Pelvic Floor Assessment Urine Pelvic Floor Surgery No Urinary Symptoms Urge Sensation Other Urinary Symptoms with impact exercise Stephanie reports moderate urgence and occasional urgency after going to the bathroom. Leakage Size Medium Leakage Cause Exercise Lifting Leaks Per Day depends on activity Urine Pad Type Maxi Pad Pelvic Clock Pelvic Clock 12-3 Atrophy Pelvic Clock 3-6 Atrophy Pelvic Clock 6-9 Atrophy Pelvic Clock 9-12 Atrophy SEMG (uV) Baseline 6.0 10 Second Contraction 13.4 Recruitment Pattern Fair Relaxation Fair Holding Fair Stability of Hold Fair SEMG Stability of Rest Fair Contraction Ability Voluntary Contraction Weak Voluntary Relaxation Weak Manual Muscle Testing Left 2 Manual Muscle Testing Right 3 Manual Muscle Testing Anterior 2 Manual Muscle Testing Posterior 3 Muscle Endurance (Seconds) 6 PT-OP-J Posture/Palpation/Skin Start: 05/25/19 16:58 Freq: Status: Active Protocol: Document 05/20/19 09:00 [facility] (Rec: 05/25/19 17:35 [facility] [email or web address]) Palpation Assessment Location One Palpation Location right quadratus lumborum Palpation Findings Soft Tissue Tightness Muscle Guarding Palpation Details visual tightness of the right quadratus lumborum in standing PT-OP-Q Treatments Start: 05/25/19 16:58 Freq: Status: Active Protocol: Document 06/26/19 13:00 [facility] (Rec: 06/30/19 06:48 [facility] [email or web address]) Therapeutic Exercises Supine Exercises 5 Supine Exercise Name TA facilitation without obliques 3 Supine Exercise Name supine bent knee fallouts Reps/Minutes x 10 reps Comments able to do now 1 Supine Exercise Name iliopsoas stretch in supine Side bilateral Comments much more improved ROM Prone Exercises 1 Prone Exercise Name prone hip ER AROM Side right Reps/Minutes x 10 reps Comments able to do easily now Other Exercises 2 Other Exercise Name quadraped thoracic rotation and sidelying thoracic rotation Comments to open up the right tib cage 1 Other Exercise Name juan antonio pose with sidebend stretch Manual Therapy Treatment Soft Tissue Mobilization 2 Body Location QL MFR Body Position Sidelying Comments right sidelying techniques Joint Mobilizations 2 Joint Hip distraction MWM hip ER/ER, inferior glide Grade III Body Position Hooklying 1 Joint right posterior capsule hip stretch Grade III Body Position Hooklying PT-OP-T Assessment and Plan Start: 05/25/19 16:58 Freq: Status: Active Protocol: Document 06/26/19 13:00 [facility] (Rec: 06/30/19 06:48 [facility] [email or web address]) Physical Therapy Assessment Assessment Summary Assessment Doing much better overall, right QL still somewhat tight and right thoracic roation limited. Added in some rotational stretches for Stephanie to do at home. Improved isolation of the pelvic floor Physical Therapy Plan Frequency and Duration Frequency of Treatment 1x/Week Duration of Treatment 8 weeks Plan of Care Start Date 05/20/19 Plan of Care End Date 07/22/19 Therapeutic Interventions Therapeutic Interventions Home Exercise Program Joint Mobilizations Manual Therapy Neuromuscular Re-education Patient/Caregiver Education Self-Care/Home Management Therapeutic Exercises Modalities Biofeedback Electric Stimulation Other Therapeutic Interventions Home rental of NMES Next Visit Focus/Plan Next Note Type Treatment Note Next Visit Plan Check QL tightness, right rotation, EMG biofeedback for the pelvic floor
--- NOTE | 2019-09-03 09:36 | PT.OPPN ---
Current Diagnoses Stress incontinence (female) (male) (06/26/19) Pelvic muscle wasting (06/26/19) Physical Therapy Progress Note PT-OP-A Visit Information Start: 05/25/19 16:58 Freq: Status: Active Protocol: Document 06/26/19 13:00 [facility] (Rec: 06/30/19 06:48 [facility] [email or web address]) Out-Patient Physical Therapy Visit Information Visit Information Visit Type Treatment Note Visit Start Time 13:00 Visit Stop Time 13:45 Total Visit Minutes 45 Visit Number 4 PT-OP-B Current Condition Start: 05/25/19 16:58 Freq: Status: Active Protocol: Document 05/20/19 09:00 [facility] (Rec: 05/25/19 17:35 [facility] [email or web address]) Current Condition History of Current Condition Onset Date sx began post Current Complaints c/o urinary leakage with running and with lifting weights History of Current Condition Stephanie is a 43 year old female s/p 4 vaginal deliveries with minimal tearing. She reports her symptoms began following her pregnancies. 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 If she is in a posterior pelvic tilt she has more control. Running especially sprinting causes leakage and she will wet through her outerwear. She has a history of right biceps tendon repair 3 years ago and she notes during this time she injured her low back. Her urinary leakage symptoms worsened following this period. Treatment Goals Patient/Caregiver Goals Goals include to continue running and sprinting without urinary leakage and to feel strong and supported with lifting weights without leakage. PT-OP-C Subjective Start: 05/25/19 16:58 Freq: Status: Active Protocol: Document 06/26/19 13:00 [facility] (Rec: 06/30/19 06:48 [facility] [email or web address]) OP-PT Subjective Patient Comments Patient Comments Stephanie reports her right hip released after last visit and feels much more free now PT-OP-F Manual Assessment Start: 05/25/19 16:58 Freq: Status: Active Protocol: Document 05/20/19 09:00 [facility] (Rec: 05/25/19 17:35 [facility] [email or web address]) Manual Assessments Soft Tissue Assessment Soft Tissue Mobility Assessment tightness of the iliopsoas bilaterally right greater than left with + panchito test Joint Mobility Assessment Joint Mobility Assessment SI instability with + ASLR on the R for left sided instability + flare test on the right with decreased ability to perform tight hip ER without the pelvis moving PT-OP-I Pelvic Floor Start: 05/25/19 16:58 Freq: Status: Active Protocol: Document 05/20/19 09:00 [facility] (Rec: 05/25/19 17:35 [facility] [email or web address]) Pelvic Floor Assessment Urine Pelvic Floor Surgery No Urinary Symptoms Urge Sensation Other Urinary Symptoms with impact exercise Stephanie reports moderate urgence and occasional urgency after going to the bathroom. Leakage Size Medium Leakage Cause Exercise,Lifting Leaks Per Day depends on activity Urine Pad Type Maxi Pad Pelvic Clock Pelvic Clock 12-3 Atrophy Pelvic Clock 3-6 Atrophy Pelvic Clock 6-9 Atrophy Pelvic Clock 9-12 Atrophy SEMG (uV) Baseline 6.0 10 Second Contraction 13.4 Recruitment Pattern Fair Relaxation Fair Holding Fair Stability of Hold Fair SEMG Stability of Rest Fair Contraction Ability Voluntary Contraction Weak Voluntary Relaxation Weak Manual Muscle Testing Left 2 Manual Muscle Testing Right 3 Manual Muscle Testing Anterior 2 Manual Muscle Testing Posterior 3 Muscle Endurance (Seconds) 6 PT-OP-J Posture/Palpation/Skin Start: 05/25/19 16:58 Freq: Status: Active Protocol: Document 05/20/19 09:00 [facility] (Rec: 05/25/19 17:35 [facility] [email or web address]) Palpation Assessment Location One Palpation Location right quadratus lumborum Palpation Findings Soft Tissue Tightness,Muscle Guarding Palpation Details visual tightness of the right quadratus lumborum in standing PT-OP-T Assessment and Plan Start: 05/25/19 16:58 Freq: Status: Active Protocol: Document 09/03/19 09:30 [facility] (Rec: 09/03/19 09:36 [facility] [email or web address]) Physical Therapy Assessment Impairments Impairments Activity Tolerance,Functional Activities,ROM,Soft Tissue Mobility,Strength Other Impairments urinary stress incontinence with weakness of the pelvic floor Goals Five Impairment Decreased endurance of the pelvic floor Short Term Goal (STG) Stephanie is able to sustain a pelvic floor contraction in supine x 10 seconds for 10 reps GOAL MET STG Duration 4 weeks Penitentiary Goal (LTG) Stephanie is able to sustain a pelvic floor muscle contraction in standing x 10 seconds for 10 reps EXCELLENT PROGRESS LTG Duration 8 weeks Four Impairment R SI dysfunction with decreased ability to rotate the right hip Penitentiary Goal (LTG) Stephanie is able to rotate her right hip without the pelvis moving, ASLR is negative B and she is no longer showing left SI unlocking demonstrating improved SI stabilization EXCELLENT PROGRESS LTG Duration 8 weeks plus Three Impairment tightness and muscle guarding of the R>L iliopsoas, R quadratus lumborum Short Term Goal (STG) Stephanie is educated in a streching program for the iliopsoas and quadratus lumborum GOAL MET STG Duration 3-4 weeks Two Impairment Urinary leakage with weight lifting and running Teacher Resource Goal (LTG) With strengthening Stephanie is able to return to her weight lifting exercises and running without experiencing leakage EXCELLENT PROGRESS LTG Duration 8 weeks plus One Impairment Weakness of the levator ani with decreased sensation of PFM activation Penitentiary Goal (LTG) Stephanie is able to show a increase in pelvic floor strength by at least one muscle grade and has improved sensation of pelvic floor activation Current MMT is anterior 2/5 posterior 3/5 left side 2/5, right side 3/5 EXCELLENT PROGRESS LTG Duration 8 weeks Progress Towards Goals Progress Towards Goals Progressing Toward Goals Assessment Summary Assessment Stephanie has been seen for 4 visits in PT. Her last attended visit was 06/26/19. At that time she was renting a home Neuromuscular electrical. stimulation unit for the pelvic floor as she was still having some difficulty recruiting her anterior pelvic floor. She is doing much better overall with decreased symptoms. She would like continued PT to address higher level exercises with crossfit like jump rope and lifting overhead. Physical Therapy Plan Frequency and Duration Frequency of Treatment 1x/Week Duration of Treatment 8 Plan of Care Start Date 09/03/19 Plan of Care End Date 11/03/19 Therapeutic Interventions Therapeutic Interventions Home Exercise Program,Joint Mobilizations,Manual Therapy, Neuromuscular Re-education, Patient/Caregiver Education, Self-Care/Home Management, Therapeutic Exercises Modalities Biofeedback,Electric Stimulation Other Therapeutic Interventions Home rental of [employer] Next Visit Focus/Plan Next Note Type Treatment Note Next Visit Plan Recheck of pelvic floor strength as Stephanie has not been in since June. Begin pelvic floor activation with higher level dynamic activities
== END 2019-06-27 12:34 ==
LOC: PHYS 13:00
PROVIDERS: PCP Registered Nurse Diabetes Educator; Visit Provider Registered Nurse Diabetes Educator
DX: N39.3 Stress incontinence (female) (male) (principal); N81.84 Pelvic muscle wasting
CPT/HCPCS: 97110; 97112; 97140; 97161

== ENCOUNTER → 2019-10-02 15:39 | Outpatient (CLI) | payer OTHER, SELFPAY ==
--- NOTE | 2019-10-02 | DI.MRI.S_ITS ---
PROCEDURE: MR ANKLE RT WO CON INDICATIONS: Pain in right ankle TECHNIQUE: Noncontrast sagittal T1 spin echo and T2 fast spin echo with fat saturation, axial proton density fast spin echo and T2 fast spin echo with fat saturation, coronal T1 spin echo and T2 fast spin echo with fat saturation through the ankle/hindfoot. COMPARISON: None. FINDINGS: Image quality: Excellent. Bones and joints: No bone marrow contusions or fractures. No hindfoot coalitions. No osteochondral injuries of the talar dome. Mild tibiotalar joint effusion. Medial structures: The posterior tibialis, flexor digitorum longus, and flexor hallucis longus tendons are intact. Mild posterior tibialis and flexor digitorum longus tenosynovitis The posterior tibial neurovascular bundle appears normal within the tarsal tunnel, without extrinsic mass effect. The deep layer (anterior and posterior tibiotalar ligaments) and superficial layer (tibionavicular, tibiospring, and tibiocalcaneal ligaments) of the deltoid ligament appear normal. The spring ligament components (superomedial calcaneonavicular, medioplantar oblique calcaneonavicular, and inferoplantar longitudinal ligaments) are intact. Lateral structures: The anterior talofibular, calcaneofibular, and posterior talofibular ligaments appear intact. More superiorly, the anterior and posterior tibiofibular ligaments appear intact, as is the intermalleolar ligament. The tibiofibular syndesmosis is normal in width at 2 mm or less. The peroneus longus and brevis tendons demonstrate normal location and morphology. Adjacent bony peroneal tubercle and retrotrochlear prominence are normal in size. The sinus tarsi demonstrates normal fatty signal, without edema, fibrosis, or cyst formation. Visualized sinus tarsi components (cervical ligament, interosseous talocalcaneal ligament, roots of the inferior extensor retinaculum) appear normal. The calcaneonavicular and calcaneocuboid components of the bifurcate ligament appear intact. The dorsal calcaneocuboid ligament appears intact. Anterior structures: The tibialis anterior, extensor hallucis longus, and extensor digitorum longus tendons appear intact. The dorsal talonavicular ligament appears intact. Posterior and plantar structures: Achilles tendon is intact. Minimal retrocalcaneal bursal fluid. Mild medial band plantar fasciitis. IMPRESSION: Mild posterior tibialis and flexor digitorum longus tenosynovitis. Minimal retrocalcaneal bursitis. Mild medial band plantar fasciitis. Tibiotalar joint effusion. Dictated by: Christopher Perez M.D. on 10/02/2019 at 16:36 Approved by: Christopher Perez M.D. on 10/02/2019 at 16:41
== END ==
PROVIDERS: Family Provider Registered Nurse Diabetes Educator; PCP Registered Nurse Diabetes Educator; Visit Provider Orthopaedic Surgery
DX: M25.571 Pain in right ankle and joints of right foot (principal); M65.871 Other synovitis and tenosynovitis, right ankle and foot; M72.2 Plantar fascial fibromatosis; M25.471 Effusion, right ankle
CPT/HCPCS: 73721

== ENCOUNTER → 2020-07-09 12:43 | Outpatient (CLI) | payer OTHER, SELFPAY ==
--- NOTE | 2020-07-09 | DI.MG.S_ITS ---
BILATERAL DIGITAL SCREENING MAMMOGRAM 3D/2D WITH CAD: 07/09/2020 CLINICAL: Routine screening. Comparison is made to exams dated: 02/05/2019 mammogram and 12/17/2017 mammogram - [facility]. The tissue of both breasts is heterogeneously dense. This may lower the sensitivity of mammography. Current study was also evaluated with a Computer Aided Detection (CAD) system. No significant masses, calcifications, or other findings are seen in either breast. There has been no significant interval change. IMPRESSION: NEGATIVE There is no mammographic evidence of malignancy. A 1 year screening mammogram is recommended. This exam was interpreted at Station ID: [id number]. NOTE: For mammograms, a report in lay terms will be sent to the patient. Approximately 15% of breast malignancies will not be visualized mammographically. In the management of a palpable breast mass, a negative mammogram must not discourage biopsy of a clinically suspicious lesion. Electronically Signed By: Will corley/junior:07/09/2020 17:03:25 letter sent: Normal Exam ACR BI-RADS Category 1: Negative [id number]
== END ==
PROVIDERS: Family Provider Registered Nurse Diabetes Educator; PCP Registered Nurse Diabetes Educator; Referring Provider Registered Nurse Diabetes Educator; Visit Provider Registered Nurse Diabetes Educator
DX: Z12.31 Encounter for screening mammogram for malignant neoplasm of breast (principal)
CPT/HCPCS: 77063; 77067